=== PATIENT | male | born 1990 | race Caucasian/White ===

== ENCOUNTER 2018-04-02 13:23 | Emergency (ER) | payer SELFPAY ==
[~2018-04-02] VITALS: Ht 177.8 cm; Wt 52.2 kg
[~2018-04-02 13:23] MED LIST: BISM262O28 PO
[2018-04-02] MEDS ORDERED: HYDROCODONE/ACETAMINOPHEN 5-325 MG TABLET PO ONE (15:00)
[2018-04-02 16:15] VITALS: BP 137/74
== END 2018-04-02 16:42 | disposition home or self-care (01) ==
LOC: EMS 13:23
DX: S43.402A Unspecified sprain of left shoulder joint, initial encounter (principal); F12.10 Cannabis abuse, uncomplicated; F17.210 Nicotine dependence, cigarettes, uncomplicated; X50.9XXA Other and unspecified overexertion or strenuous movements or postures, initial encounter; X50.0XXA Overexertion from strenuous movement or load, initial encounter; Y93.B3 Activity, free weights; Y92.89 Other specified places as the place of occurrence of the external cause; Y99.8 Other external cause status
CPT/HCPCS: 99284